=== PATIENT | female | born 1995 | race Caucasian/White ===

== ENCOUNTER → 2023-04-21 16:33 | Outpatient (CLI) | payer OTHER, SELFPAY ==
[2023-04-21 17:46] LABS: Appearance Urine UA CLEAR; Bilirubin Urine UA NEGATIVE (NEGATIVE); Color Urine UA YELLOW; Glucose Urine UA NEGATIVE (Negative); Ketones Urine UA NEGATIVE (NEGATIVE); Leukocyte Esterase Urine UA NEGATIVE (NEGATIVE); Nitrite Urine UA NEGATIVE (Negative); Occult Blood Urine UA NEGATIVE (Negative); Protein Urine UA NEGATIVE (Negative); Urobilinogen Urine UA 0.2 E.U./dL (0.2)
[2023-04-21 17:50] LABS: pH Urine UA 6.5 (4.5-8.0)
[2023-04-21 17:50] LABS: Add Manual Diff / Slide Review NO; Basophils Absolute Auto 0 /uL (0-100); Basophils Percent Auto 0.3 % (0-2); Eosinophils Absolute Auto 0 /uL (0-450); Eosinophils Percent Auto 0.8 % (2-4); Hematocrit 34.1 % (36-46); Hemoglobin 11.9 g/dL (12.0-16.0); Lymphocytes Absolute Auto 1700 /uL (1100-4500); Lymphocytes Percent Auto 29.3 % (25-40); Mean Corpuscular HGB Conc 34.9 % (30-36); Mean Corpuscular Hemoglobin 31.2 PG (26-34); Mean Corpuscular Volume 89.4 fL (80-100); Monocytes Absolute Auto 400 /uL (0-900); Monocytes Percent Auto 6.2 % (3-14); Neutrophils Absolute Auto 3700 /uL (1500-7000); Neutrophils Percent Auto 63.4 % (50-75); Platelet Count 139 X10^3/uL (150-400); Red Blood Cell Count 3.81 X10^6/uL (4.0-5.2); Red Cell Distribution Width 17.2 % (11.6-14.8); White Blood Cell Count 5.8 X10^3/uL (4.5-11.0)
[2023-04-22 11:38] LABS: Hepatitis B Surface Antigen NEGATIVE s/c (NEGATIVE); Rubella Antibody IgG 98.7 IU/mL (>15)
[2023-04-22 11:55] LABS: HIV 1 & 2 Ab/Ag 4th Gen Combo NEGATIVE (NEGATIVE); Hep C Virus Ab w/Reflex Quant NEGATIVE s/c (NEGATIVE)
[2023-04-22 14:24] LABS: Varicella IgG Antibody 584 index (Immune >165)
[2023-04-27 06:32] LABS: RPR Screen Non Reactive (Non Reactive)
== END ==
LOC: LAB 16:35
PROVIDERS: Referring Provider Family Medicine; Visit Provider Family Medicine
DX: Z34.81 Encounter for supervision of other normal pregnancy, first trimester (principal); Z34.82 Encounter for supervision of other normal pregnancy, second trimester
CPT/HCPCS: 36415; 80055; 81003; 86787; 86803; 86850; 86900; 86901; 87086; 87389

== ENCOUNTER → 2023-06-01 15:16 | Outpatient (CLI) | payer OTHER, SELFPAY ==
--- NOTE | 2023-06-01 15:17 | DI.US.S_ITS ---
PROCEDURE: US OB >= 14 WEEKS FETUS INDICATIONS: ANATOMY OUTSIDE/PRIOR DATING DATA: Last menstrual period (LMP): 01/09/23. LMP-based estimated date of delivery (DESTIN): 10/16/23. First dating scan (date and location): 03/17/23. Estimated date of delivery (DESTIN) from first dating scan: 10/13/23. The calculations are made using the working DESTIN of 10/16/23. TECHNIQUE: Real-time scanning was performed of the fetus, with image documentation and biometric measurements. Endovaginal scanning: Not performed COMPARISON: None. FINDINGS: General: A single living intrauterine gestation is present. Presentation: Breech. Placenta: Placental position is posterior . The edge of the placenta is at and potentially over the internal cervical os. Maternal bladder is full creating some artifact. Amniotic fluid index: 9.0 cm, normal range is 5-24 cm. Single deepest vertical pocket is 3.7 cm. heart rate: 155 beats per minute. Maternal cervical canal: Closed and 2.9 cm long. Normal lower limit is 2.5 cm. biometrics: Biparietal diameter: 4.6 cm, 19 weeks six days Head circumference: 17.5 cm, 20 weeks 0 days Abdominal circumference: 17.3 cm, 22 weeks one day Femur length: 3.2 cm, 20 weeks 0 days Clinically estimated gestational age: 20 weeks three days Composite gestational age from present scan: 20 weeks four days Estimated weight and percentile: 397 g, 80th percentile Anatomic survey: Neuro: Ventricles are non-dilated at less than 10 mm. Cisterna magna is normal at 3-11 mm. Cerebellum is normal in size and morphology. Nuchal skin fold: Normal at less than 6 mm between 14-21 weeks gestational age. Face: Nose and lips, facial profile are normal. Spine: Lumbar and sacral spine or less well seen due to lie. Skin covering spine was not well seen due to lie. Heart: 4-chambered heart is present, with normal ventricular outflow tracts. Diaphragm: Diaphragm is intact. Stomach: Left-sided stomach is present. Kidneys: No hydronephrosis. Normal is less than 5 mm in 2nd trimester, less than 7 mm in 3rd trimester. Cord: 3-vessel cord has orthotopic insertion. Bladder: Normal in size. Extremities: All 4 extremities identified. IMPRESSION: Single live intrauterine with appropriate growth. Estimated weight at the 80th percentile. spine in skin covering spine were not well seen due to lie. Follow-up in one week recommended. Otherwise normal anatomy. Posterior placenta with question for previa. Maternal bladder is full which can accentuate appearance of the low lying placenta. Full evaluation in the early 3rd trimester including transvaginal/trans labial imaging for improved detail is recommended. Normal amniotic fluid volume. We strive to produce accurate, complete, and clear reports of imaging services. To assist us in improving patient care, this report was composed using standard report templates and voice recognition software. Therefore, it may contain abnormal punctuation, insertions and/or omissions. Occasional wrong-word or sound-alike substitutions may occur. Though we review the report and make efforts to correct it, we do recommend that the report be read carefully in proper context to recognize any text inaccuracies. Dictated by: Margarita Bhatti M.D. on 06/01/2023 at 18:31 Approved by: Margarita Bhatti M.D. on 06/01/2023 at 18:42
== END ==
PROVIDERS: Referring Provider Family Medicine; Visit Provider Family Medicine
DX: Z34.02 Encounter for supervision of normal first pregnancy, second trimester (principal); Z3A.20 20 weeks gestation of pregnancy
CPT/HCPCS: 76811

== ENCOUNTER → 2023-07-20 10:21 | Outpatient (CLI) | payer OTHER, SELFPAY ==
--- NOTE | 2023-07-20 10:22 | DI.US.S_ITS ---
PROCEDURE: US OB FOLLOW UP INDICATIONS: LOW-LYING PLACENTA OUTSIDE/PRIOR DATING DATA: Last menstrual period (LMP): January 09, 2023. LMP-based estimated date of delivery (DESTIN): October 16, 2023. First dating scan (date and location): March 17, 2023. Estimated date of delivery (DESTIN) from first dating scan: October 13, 2023. TECHNIQUE: Real-time scanning was performed of the fetus, with image documentation. COMPARISON: None. FINDINGS: A single living intrauterine gestation is present. Presentation: Vertex Placenta: The inferior margin of the placenta is located at the cervical os consistent with a low lying placenta. Amniotic fluid index: 12.5 cm, normal range is 5-24 cm. Single deepest vertical pocket is 3.8 cm. heart rate: 131 beats per minute. Maternal cervical canal: 3.5 cm long. Normal lower limit is 2.5 cm. Estimated gestational age from initial scan: 27 weeks, 3 days. Miscellaneous: The spine has a normal sonographic appearance. IMPRESSION: 1. Single live intrauterine gestation in vertex position. 2. The inferior margin of the placenta is located adjacent to the cervical os consistent with a low lying placenta. Dictated by: Lily Piña M.D. on 07/20/2023 at 13:29 Approved by: Lily Piña M.D. on 07/20/2023 at 13:31
== END ==
PROVIDERS: Referring Provider Family Medicine; Visit Provider Family Medicine
DX: O44.02 Complete placenta previa NOS or without hemorrhage, second trimester (principal); Z3A.27 27 weeks gestation of pregnancy
CPT/HCPCS: 76816

== ENCOUNTER 2023-07-24 10:51 | Outpatient (CLI) | payer OTHER, SELFPAY ==
--- NOTE | 2023-07-24 13:52 | PM.OBTRLD ---
Visit Information Visit Information Date of evaluation: 07/24/23 On-call OB Provider: Nely Li Reason for Evaluation: Yes other Comments/Additional reasons for admission: decreased movement Vital Signs Vital Signs: BP 116/70, HR 66, T 97.5 [facility] Medical History (Updated 07/24/23 @ 13:54 by Nely Li DO) Chlamydia (~2017) Abnormal Pap smear of cervix Cellulitis of leg (~2013) Surgical History (Updated 04/16/23 @ 14:17 by Arlene Higuera) Anesthesia [place] teeth removed H/O LEEP (~04/2022) Family History (Updated 04/16/23 @ 14:20 by Arlene Higuera) Grandmother Ovarian cancer Grandmother Dementia Father Mental health problem Mother Mental health problem Sister Mental health problem Grandfather Brain disorder Social History marital status: number of children: 0 household members: spouse and friend(s) (2 roommates ) lives independently: Yes caregiver/support person: No housing: [facility] pets and animals: Yes (cat, 2 dogs) education level: college (some college) occupational status: employed (desk job) and student current occupational exposures/hazards: No special savana needs: No travel history: over 6 months ago seatbelt use: always helmet use: Yes water heater temp set < 120 deg: Yes working smoke detector in home: Yes fire extinguisher in home: Yes carbon monox detector in home: Yes firearms in home: Yes do you feel safe at home: Yes Smoking Status: Former smoker (occasionally in the past, never regularly) second hand exposure: No alcohol intake: never substance use type: does not use during the past year weight has: remained stable well-balanced diet: daily or most days (vegan) daily servings fruits/ve or more times/day caffeine: Yes (~100mg/day) Type(s) of exercise: regular exercise and running Evaluation Evaluation Baseline heart rate: 130 Variability: Moderate (11-25) monitor accelerations: Present (10x10) Monitor Decelerations: Absent Category of Tracing: Appropriate for gestational age Diagnosis, Plan/Disposition Final Diagnosis (1) Decreased movement: Status: Acute Plan/Disposition Plan: 27yo at 28+0wks presenting for decreased movement. Appropriate NST for gestational age, with pt experiencing active movement while in triage. -discharged home with routine precautions, and advised to f/u in clinic as scheduled OB Disposition: home
== END 2023-07-24 11:45 | disposition home or self-care (01) ==
LOC: OB 07-26 10:37
PROVIDERS: Referring Provider Student in an Organized Health Care Education/Training Program; Visit Provider Student in an Organized Health Care Education/Training Program
DX: O36.8190 Decreased fetal movements, unspecified trimester, not applicable or unspecified (principal); Z36.9 Encounter for antenatal screening, unspecified
CPT/HCPCS: 59025; G0378; G0379

== ENCOUNTER → 2023-07-30 10:37 | Outpatient (CLI) | payer OTHER, SELFPAY ==
[2023-07-30 12:25] LABS: Add Manual Diff / Slide Review NO; Basophils Absolute Auto 0 /uL (0-100); Basophils Percent Auto 0.3 % (0-2); Eosinophils Absolute Auto 0 /uL (0-450); Eosinophils Percent Auto 0.5 % (2-4); Hematocrit 33.2 % (36-46); Hemoglobin 11.4 g/dL (12.0-16.0); Lymphocytes Absolute Auto 1200 /uL (1100-4500); Lymphocytes Percent Auto 19.9 % (25-40); Mean Corpuscular HGB Conc 34.4 % (30-36); Mean Corpuscular Hemoglobin 32.2 PG (26-34); Mean Corpuscular Volume 93.7 fL (80-100); Monocytes Absolute Auto 500 /uL (0-900); Monocytes Percent Auto 7.9 % (3-14); Neutrophils Absolute Auto 4500 /uL (1500-7000); Neutrophils Percent Auto 71.4 % (50-75); Platelet Count 111 X10^3/uL (150-400); Red Blood Cell Count 3.55 X10^6/uL (4.0-5.2); Red Cell Distribution Width 13.8 % (11.6-14.8); White Blood Cell Count 6.2 X10^3/uL (4.5-11.0)
[2023-07-30 12:34] LABS: GTT (PREG) 1 Hour PP 50gm Dose 100 mg/dL (76-139)
== END ==
PROVIDERS: Referring Provider Family Medicine; Visit Provider Family Medicine
DX: Z34.00 Encounter for supervision of normal first pregnancy, unspecified trimester (principal)
CPT/HCPCS: 36415; 82950; 85025; 86850

== ENCOUNTER → 2023-08-19 10:11 | Outpatient (CLI) | payer OTHER, SELFPAY ==
--- NOTE | 2023-08-19 10:12 | DI.US.S_ITS ---
PROCEDURE: US OB FOLLOW UP INDICATIONS: placenta previa, follow up OUTSIDE/PRIOR DATING DATA: Last menstrual period (LMP): 01/09/2023. LMP-based estimated date of delivery (DESTIN): 10/16/2023. First dating scan (date and location): 03/17/2023. Estimated date of delivery (DESTIN) from first dating scan: 10/13/2023. The calculations are made using the clinical DESTIN of 10/16/2023. TECHNIQUE: Real-time scanning was performed of the fetus, with image documentation. Endovaginal scanning: Not performed COMPARISON: [facility], OB FOLLOW UP, 07/20/2023, 10:28. FINDINGS: A single living intrauterine gestation is present. Presentation: Vertex. Placenta: Placental position is posterior, with previa. Amniotic fluid index: 8.3 cm, normal range is 5-24 cm. Single deepest vertical pocket is 4.7 cm. heart rate: 157 beats per minute. Maternal cervical canal: 3.8 cm long. Normal lower limit is 2.5 cm. Clinically estimated gestational age: 31 weeks 5 days IMPRESSION: Single living intrauterine at 31 weeks 5 days, DESTIN of 10/16/2023. Placenta previa on today's exam. Dictated by: David Rutherford M.D. on 08/19/2023 at 15:18 Approved by: David Rutherford M.D. on 08/19/2023 at 15:20
== END ==
LOC: US 10:11
PROVIDERS: Referring Provider Family Medicine; Visit Provider Family Medicine
DX: O44.00 Complete placenta previa NOS or without hemorrhage, unspecified trimester (principal); Z3A.31 31 weeks gestation of pregnancy
CPT/HCPCS: 76816

== ENCOUNTER → 2023-09-21 10:11 | Outpatient (CLI) | payer OTHER, SELFPAY ==
[2023-09-22 10:24] LABS: Strep Grp B PCR NEG for Grp B Strep
== END ==
PROVIDERS: Visit Provider Family Medicine
DX: Z34.00 Encounter for supervision of normal first pregnancy, unspecified trimester (principal)
CPT/HCPCS: 87653

== ENCOUNTER 2023-09-24 02:46 | Inpatient (IN) | payer OTHER, SELFPAY ==
--- NOTE | 2023-09-24 02:57 | DI.US.S_ITS ---
PROCEDURE: US OB BIOPHYSICAL PROFILE INDICATIONS: vaginal bleeding. need biometrics and placenta status OUTSIDE/PRIOR DATING DATA: Last menstrual period (LMP): 01/09/23. LMP-based estimated date of delivery (DESTIN): 10/16/23. First dating scan (date and location): 03/17/23. Estimated date of delivery (DESTIN) from first dating scan: 10/13/23. The calculations are made using the working DESTIN of 10/16/23. TECHNIQUE: Real-time scanning was performed of the fetus, with image documentation and biometric measurements. Biophysical profile was also obtained. Endovaginal scanning: Performed for cervical detail COMPARISON: None. FINDINGS: General: A single living intrauterine gestation is present. Presentation: Vertex, spine to maternal right. Placenta: Placental position is reported to be posterior, appears inferior, with apparent complete previa. Amniotic fluid index: 7.1 cm, normal range is 5-24 cm. Single deepest vertical pocket is 2.5 cm. heart rate: 139 beats per minute. Maternal cervical canal: Appears closed and 3.2 cm long. Normal lower limit is 2.5 cm. biometrics: Biparietal diameter: 8.1 cm, 32 weeks three days Head circumference: 31.3 cm, 35 weeks one day Abdominal circumference: 33.6 cm, 37 weeks three days Femur length: 7.2 cm, 36 weeks five days Clinically estimated gestational age: 36 weeks six days Composite gestational age from present scan: 35 weeks three days Estimated weight and percentile: 2938 g, 44th percentile Biophysical profile: 11/17 Tone: 2 Movement: 2 points. Respiration: 2 points. Largest pocket of fluid: 2 points. Umbilical artery Doppler: Ranging from 2.1-2.6, normal IMPRESSION: Single living intrauterine with composite gestational age one week three days behind clinically estimated gestational age. Estimated weight at the 44th percentile. Normal biophysical profile score. Normal umbilical cord Dopplers. Closed cervix and normal amniotic fluid volume. Complete placenta previa. Preliminary results given by the temperature logging operator to the ordering provider by telephone. We strive to produce accurate, complete, and clear reports of imaging services. To assist us in improving patient care, this report was composed using standard report templates and voice recognition software. Therefore, it may contain abnormal punctuation, insertions and/or omissions. Occasional wrong-word or sound-alike substitutions may occur. Though we review the report and make efforts to correct it, we do recommend that the report be read carefully in proper context to recognize any text inaccuracies. Dictated by: Margarita Bhatti M.D. on 09/24/2023 at 8:15 Approved by: Margarita Bhatti M.D. on 09/24/2023 at 8:27
[2023-09-24 03:28] LABS: Add Manual Diff / Slide Review NO; Basophils Absolute Auto 0 /uL (0-100); Basophils Percent Auto 0.5 % (0-2); Eosinophils Absolute Auto 0 /uL (0-450); Eosinophils Percent Auto 0.6 % (2-4); Hematocrit 31.1 % (36-46); Hemoglobin 10.9 g/dL (12.0-16.0); Lymphocytes Absolute Auto 1900 /uL (1100-4500); Lymphocytes Percent Auto 24.6 % (25-40); Mean Corpuscular HGB Conc 35.1 % (30-36); Mean Corpuscular Volume 91.1 fL (80-100); Monocytes Absolute Auto 600 /uL (0-900); Monocytes Percent Auto 7.6 % (3-14); Neutrophils Absolute Auto 5200 /uL (1500-7000); Neutrophils Percent Auto 66.7 % (50-75); Platelet Count 92 X10^3/uL (150-400); Red Blood Cell Count 3.41 X10^6/uL (4.0-5.2); Red Cell Distribution Width 13.7 % (11.6-14.8); White Blood Cell Count 7.8 X10^3/uL (4.5-11.0)
[2023-09-24 04:02] LABS: INR 0.9 (0.9-1.3); Prothrombin Time 9.8 SECONDS (9.4-12.5)
[2023-09-24 04:05] LABS: PTT Partial Thromboplastin Tim 25 SECONDS (25.1-36.5)
[2023-09-24 04:32] LABS: Fibrinogen 424 mg/dL (238-498)
--- NOTE | 2023-09-24 05:11 | PM.OBHP.1 ---
OB HPI Date/Time Date of admission: 09/24/23 Date Patient Seen: 09/24/23 Time Patient Seen: 05:11 History of Present Condition Chief complaint: IUP, 36+6 wks, marginal previa, vaginal bleeding : 1 Para: 0 Estimated Date of Delivery: 10/16/23 Estimated Gestational Age (weeks): 36+6 Narrative: Laurie Gtz is a 27 year old primigravida admitted now at 36+ 6 weeks gestational age with 3rd trimester bleeding and contractions. Patient was diagnosed with placenta previa at the time of her 20 week anatomy scan and subsequent scans have shown persistence of at least a marginal placenta previa. Her most recent evaluation by [facility] on 09/13/2023 showed the placental edge to be less than 0.5 cm from the internal cervical os in the recommendation was made for primary delivery. She is currently scheduled for delivery by primary section on 10/04/2023 but early this morning began having painless vaginal bleeding and presented to the center for evaluation. Her heart rate tracing is reassuring in all respects and biophysical profile is 10/10. She continues to have light bright red vaginal bleeding but now has started having contractions which are occurring about every 3-4 minutes and becoming increasingly painful. In the face of 3rd trimester bleeding, and increasingly intense contraction activity, patient is admitted now for primary delivery. Patient's dating is solid with appropriate milestones throughout. Initial CBC during this showed decreased platelet count (139k) with her platelet count on admission this morning also decreased at 92k. Cell free DNA studies show she has a low risk male . GBS is negative. Indications Operative indications ( section): placenta previa History of Present care: good care Dating criteria: LMP confirmed by 1st trimester US Ultrasounds: normal 1st trimester US, normal mid trimester US and abnormal US findings (Placenta previa, posterior) Obstetrical complications: other (Placenta previa) Medical complications: other (Idiopathic Thrombocytopenia) Preadmission Labs Blood type: A (+) positive -: Antibody screen: negative, GBS status: negative, HBsAG: negative, HIV: negative and RPR/VDLR: negative -: Chlamydia screen: not detected and Gonorrhea screen: not detected -: Rubella: immune and Varicella: immune HCT: 31.1 HCAB: negative PAP: Normal Cell-free DNA: Low risk male infant 1 hr GTT: 100 Prior (ies) History: Primigravida Evaluation Evaluation Baseline heart rate: 155 Contraction Frequency (minutes): 4 Uterine Contraction Intensity: Moderate Category of Tracing: Reactive Status: Category l Comments: Cervical check deferred [facility] Medical History (Updated 09/24/23 @ 05:34 by Sujit Bunch MD) Anemia affecting Chlamydia (~2017) Abnormal Pap smear of cervix Cellulitis of leg (~2013) Surgical History (Updated 04/16/23 @ 14:17 by Arlene Higuera) Anesthesia [place] teeth removed H/O LEEP (~04/2022) Family History (Updated 04/16/23 @ 14:20 by Arlene Higuera) Grandmother Ovarian cancer Grandmother Dementia Father Mental health problem Mother Mental health problem Sister Mental health problem Grandfather Brain disorder Social History marital status: number of children: 0 household members: spouse and friend(s) (2 roommates ) lives independently: Yes caregiver/support person: No housing: [facility] pets and animals: Yes (cat, 2 dogs) education level: college (some college) occupational status: employed (desk job) and student current occupational exposures/hazards: No special savana needs: No travel history: over 6 months ago seatbelt use: always helmet use: Yes water heater temp set < 120 deg: Yes working smoke detector in home: Yes fire extinguisher in home: Yes carbon monox detector in home: Yes firearms in home: Yes do you feel safe at home: Yes Smoking Status: Former smoker (occasionally in the past, never regularly) second hand exposure: No alcohol intake: never substance use type: does not use during the past year weight has: remained stable well-balanced diet: daily or most days (vegan) daily servings fruits/ve or more times/day caffeine: Yes (~100mg/day) Type(s) of exercise: regular exercise and running Meds Home Medications and Allergies Home Medications Medication Instructions Recorded Confirmed Type multivitamin with minerals 1 cap PO DAILY 02/19/23 09/21/23 History vitamin-ferrous sulfate tab PO 02/19/23 09/21/23 History 27 mg iron-folic acid 0.8 mg tablet Double Electric Breast Pump and #1 ea 05/03/24 06/11/24 Rx Supplies Allergies Allergy/AdvReac Type Severity Reaction Status Date / Time No Known Drug Allergies Allergy Unverified 09/21/23 10:32 Review of Systems Review of Systems Narrative: Problem-specific ROS positives included in HPI OB Exam Vital signs Blood Pressure: 124/77 Pulse Rate: 67 Temperature: 97.9 F HENMT Head: normal to inspection, normocephalic and atraumatic Eyes General: appearance normal, both eyes and all related structures Resp Effort & Inspection: normal respiratory effort and able to speak in complete sentences Auscultation: clear to auscultation bilaterally Cardio Rate: regular rate Rhythm: regular rhythm Heart Sounds: S1 normal, S2 normal and no murmurs Extremities Lower extremity: Yes normal to inspection GI Inspection: normal to inspection Palpation: Yes soft and Yes no hepatosplenomegaly Uterus Location (Fundal Height): 37 Presentation: vertex Estimated Weight (lbs): 6 Objective Labs 09/24/23 03:12 Labs: Laboratory Results - last 24 hr 09/24/23 03:12 WBC 7.8 RBC 3.41 L Hgb 10.9 L Hct 31.1 L MCV 91.1 MCH 32.0 MCHC 35.1 RDW 13.7 Plt Count 92 L Neut % (Auto) 66.7 Lymph % (Auto) 24.6 L [place] % (Auto) 7.6 Eos % (Auto) 0.6 L Baso % (Auto) 0.5 Neut # (Auto) 5200 Lymph # (Auto) 1900 [place] # (Auto) 600 Eos # (Auto) 0 Baso # (Auto) 0 PT 9.8 INR 0.9 APTT 25 L Fibrinogen 424 Blood Type A Positive Antibody Screen Negative Assessment and Plan Assessment and Plan Assessment and Plan narrative: ASSESSMENT 1. Intrauterine , 36+ 6 weeks gestational age 2. Marginal placenta previa with hemorrhage 3rd trimester 3. Maternal thrombocytopenia, idiopathic 4. Maternal anemia 5. GBS negative status PLAN 1. Admit for primary section 2. See admission orders 3. Patient counseled regarding alternatives, risks, benefits, and potential complications associated with primary delivery by low transverse cervical incision. With full understanding of the above, a written consent was executed, signed, and witnessed this date.
[2023-09-24 05:37] VITALS: BP 124/77; PULSE 67; TEMP 36.6
[2023-09-24 05:40] VITALS: BP 124/77
--- NOTE | 2023-09-24 05:43 | PM.PREOP ---
Pre-operative Note COVID-19 COVID-19 status: Not tested Interval Note History & Physical reviewed/Exam performed by Physician: Yes Changes to H&P: No
[2023-09-24] MEDS: CITRIC ACID/SODIUM CITRATE 15 ML SOLUTION 30 ML PO (06:01)
[2023-09-24] MEDS: LACTATED RINGERS 1,000 ML 999 ML IV ×2 (06:02→07:27)
[2023-09-24 07:12] VITALS: BP 117/71; PULSE 70; RESP 15; TEMP 36.3; O2SAT 99
[2023-09-24 07:17] VITALS: BP 115/72; PULSE 64; RESP 15; O2SAT 99
--- NOTE | 2023-09-24 07:20 | P.OP_ITS ---
Operative Date/Time/Diagnoses Date of procedure: 09/24/23 Time of procedure: 06:00 Pre-op diagnosis: 36w6d gestation GBS negative Rh positive Marginal placenta previa labor Post-op diagnosis: same Procedure & Clinicians Procedure: Primary Same procedure as scheduled: Yes Indications: Marginal previa Surgeon: Belia Barlow [employer] Librarian: Sujit Bunch Anesthesia Type: Spinal Operative Notes Findings: Normal uterus, ovaries, and tubes Closure Type: primary Applied: Catheter Estimated Blood Loss (mL): 550 Blood products transfused: none Procedure in detail: OPERATIVE COURSE: The patient was taken to the operating room where spinal anesthesia was placed. She was then prepared and draped in the normal sterile fashion in the dorsal supine position with a leftward tilt. Anesthesia was tested and found to be adequate. A Pfannensteil skin incision was then made with the scalpel and carried through to the underlying layer of fascia with the scalpel. The fascia was incised in the midline and the incision extended laterally with the Liang scissors. The superior aspect of the fascial incision was then grasped with Dandre clamps, elevated with the help of the surgical services asst, and the underlying rectus muscles dissected off bluntly and sharply where needed. Attention was then turned to the inferior aspect of the incision which, in a similar fashion, was grasped, tented up with Dandre clamps, and the rectus muscle dissected off bluntly and sharply with Liang scissors. The rectus muscles were then in the midline, and the peritoneum was identified and entered bluntly. The peritoneal incision was then extended with good visualization of the bladder. Retraction was provided by the surgical services asst. The bladder blade was then inserted and the vesicouterine peritoneum identified, grasped with pick-ups and entered sharply with the Metzenbaum scissors. The incision was then extended laterally and the bladder flap created digitally. The bladder blade was then reinserted and the lower uterine segment incised in a transverse fashion with the scalpel, with the surgical services asst providing suction. The uterine incision was then extended superolaterally by pulling superolaterally on both sides. Membranes were ruptured and fluid was clear. The bladder blade was removed the infant's head was flexed out of OA position and delivered atraumatically, with fundal pressure by the surgical services asst. The nose and mouth were suctioned with bulb suction and the cord was clamped and cut. The was handed off to the waiting nursing staff. Cord blood was collected for Rh status. The placenta was then delivered with gentle cord traction. The uterus was then exteriorized and cleared of all clots and debris. The uterine incision was repaired with 1-Chromic in a running, locked fashion. A second layer of the same suture was used to obtain excellent hemostasis. The uterus was returned to the abdomen. The gutters were cleared of all clots. Hysterotomy was investigated and found to be hemostatic. The bladder flap was closed with 2-O Vicryl The peritoneum was closed with 2-O Vicryl. The fascia was reapproximated with 1-Vicryl in a running fashion. The subcutaneous tissue was reapproximated with 3-O Vicryl. The skin was closed with 4-O Monocryl. The surgical services asst helped with retraction during closures. SPONGE AND NEEDLE COUNTS: Correct x3. DRESSING: Aquacel ANTICOAGULATION: SCDs applied prior to Surgery Preop antibiotics given (see MAR). The patient was taken to recovery room having tolerated procedure well. Complications: none Baby 1: Gender: Male Presentation: vertex Position: Left Occiput Anterior Placental Delivery Description: Spontaneous Cord Vessel Description: 3 Vessels score (1 min): 6 score (5 min): 8 Post-operative Condition: stable Disposition: PACU Aftercare: routine postop
[2023-09-24 07:23] VITALS: BP 118/71; PULSE 65; RESP 14; O2SAT 100
[2023-09-24 07:40] VITALS: BP 112/60; PULSE 68; RESP 12; O2SAT 100
[2023-09-24] MEDS: KETOROLAC 30 MG/ML VIAL IV ×3 (07:52→19:34)
[2023-09-24] MEDS: ACETAMINOPHEN 325 MG TABLET 650 MG PO ×3 (09:17→23:07)
[2023-09-24] MEDS: OXYCODONE IR 5 MG TABLET PO ×4 (10:03→23:07)
[2023-09-25] MEDS: KETOROLAC 30 MG/ML VIAL IV (02:39)
[2023-09-25] MEDS: ACETAMINOPHEN 325 MG TABLET 650 MG PO ×3 (05:12→19:23)
[2023-09-25] MEDS: OXYCODONE IR 5 MG TABLET PO ×5 (05:13→23:30)
[2023-09-25 06:24] LABS: Add Manual Diff / Slide Review NO; Basophils Absolute Auto 0 /uL (0-100); Basophils Percent Auto 0.2 % (0-2); Eosinophils Absolute Auto 100 /uL (0-450); Eosinophils Percent Auto 0.6 % (2-4); Hematocrit 27.2 % (36-46); Hemoglobin 9.7 g/dL (12.0-16.0); Lymphocytes Absolute Auto 1700 /uL (1100-4500); Lymphocytes Percent Auto 21.4 % (25-40); Mean Corpuscular HGB Conc 35.5 % (30-36); Mean Corpuscular Hemoglobin 32.3 PG (26-34); Mean Corpuscular Volume 90.9 fL (80-100); Monocytes Absolute Auto 500 /uL (0-900); Monocytes Percent Auto 6.6 % (3-14); Neutrophils Absolute Auto 5800 /uL (1500-7000); Neutrophils Percent Auto 71.2 % (50-75); Platelet Count 80 X10^3/uL (150-400); Red Blood Cell Count 2.99 X10^6/uL (4.0-5.2); Red Cell Distribution Width 13.6 % (11.6-14.8); White Blood Cell Count 8.1 X10^3/uL (4.5-11.0)
[2023-09-25] MEDS: PRENATAL VIT,CALC/IRON/FOLIC 1 TABLET 1 TAB PO (08:48)
[2023-09-25] MEDS: IBUPROFEN 600 MG TABLET PO ×3 (08:49→21:30)
[2023-09-25] MEDS: FERROUS SULFATE 325 MG TABLET PO (08:49)
[2023-09-25] MEDS: DOCUSATE 100 MG CAPSULE PO (08:50)
--- NOTE | 2023-09-25 12:16 | PM.OBPN.1 ---
Subjective - OB Subjective Patient comments: no complaints and pain well controlled [place] baby status: doing well [place] feeding status: other (breast feeding and pumping) Date Patient Seen: 09/25/23 Time Patient Seen: 12:00 Exam Vital Signs (past 8 hours): Oxygen Delivery Method Room Air Narrative Exam Narrative: General: Well-appearing, well-nourished, no distress HEENT: Moist mucous membranes, no pallor CV: Regular rate and rhythm, no murmur auscultated Resp: CTAB, comfortable work of breathing Abdomen: Soft, bowel sounds present, fundus firm below umbilicus with appropriate tenderness, incision c/d/i Extremities: No edema, no calf tenderness or evidence of DVT Objective Labs 09/25/23 06:13 Labs: Laboratory Results - last 24 hr 09/25/23 06:13 WBC 8.1 RBC 2.99 L Hgb 9.7 L Hct 27.2 L MCV 90.9 MCH 32.3 MCHC 35.5 RDW 13.6 Plt Count 80 L Neut % (Auto) 71.2 Lymph % (Auto) 21.4 L [place] % (Auto) 6.6 Eos % (Auto) 0.6 L Baso % (Auto) 0.2 Neut # (Auto) 5800 Lymph # (Auto) 1700 [place] # (Auto) 500 Eos # (Auto) 100 Baso # (Auto) 0 Assessment & Plan Assessment and Plan (1) delivery delivered: Status: Acute Plan day: 1 plan OB: routine postop care Comments: POD #1 s/p primary CS for marginal previa with vaginal bleeding. - Clinically stable, recovering well - Pain management as needed - support s/p consult - Encourage ambulation, flatus/BM prior to discharge - Bleeding appropriate for course, monitor - Likely discharge home POD #2 Time Spent With Patient Time: Total time spent is greater than 50% in coordination of care (as documented) at patient's floor/unit and/or counseling patient: Time with patient: less than 15 minutes
[2023-09-26] MEDS: ACETAMINOPHEN 325 MG TABLET 650 MG PO ×2 (01:32→07:14)
[2023-09-26] MEDS: OXYCODONE IR 5 MG TABLET PO ×2 (03:33→10:20)
[2023-09-26] MEDS: IBUPROFEN 600 MG TABLET PO ×2 (03:33→10:23)
--- NOTE | 2023-09-26 09:40 | P.DS_ITS ---
Discharge Providers Provider Date of admission: 09/24/23 02:46 Discharge Date: 09/26/23 Primary care physician: Belia Barlow MD Consults: 09/24/23 07:26 Consult to Deputy Director Of Public Works Routine Comment: Discharge provider: Santo Navarro MD Summary Hospital Course Date Patient Seen: 09/26/23 Time Patient Seen: 09:41 Diagnoses: # delivery delivered # Anemia affecting # Marginal placenta previa # Vaginal bleeding in 3rd trimester Hospital Course: Admitted for urgent delivery due to marginal placenta previa with vaginal bleeding on 09/24/2023. She had an uncomplicated primary CS of a live male . Her course was uncomplicated. At discharge patient is ambulating well, tolerating normal diet, breast-feeding without difficulty, and pain is adequately controlled. She reports bleeding is similar to normal menses. Discharged home on oral iron supplement due to acute postoperative anemia in setting of chronic anemia of . Peripartum Data Delivery Method: Section complications: none 1: Gender: Male Disposition of : home Discharge Diagnosis (1) delivery delivered: Status: Acute Status at Discharge Cognitive/behavioral status at discharge: at baseline, oriented Functional status at discharge: independent ambulation Overall status at discharge: patient is progressing back to baseline Time Spent with Patient Time attestation: Total time spent providing and/or coordinating discharge services: Time spent: Less than 30 minutes Objective Labs 09/25/23 06:13 Exam Vital Signs (past 8 hours): Oxygen Delivery Method Room Air Narrative Exam Narrative: General: Well-appearing, well-nourished, no distress HEENT: Moist mucous membranes, no pallor CV: Regular rate and rhythm, no murmur auscultated Resp: CTAB, comfortable work of breathing Abdomen: Soft, bowel sounds present, fundus firm below umbilicus with appropriate tenderness, incision c/d/i covered by Aquacel dressing Extremities: No edema, no calf tenderness or evidence of DVT Discharge Plan Discharge Plan Patient Disposition: Home Provider Discharge Comment: Follow up in 1 week for incision check Discharge orders & Medications Prescriptions: New ferrous sulfate 325 mg (65 mg iron) Tablet 325 mg PO DAILY Qty: 60 0RF ibuprofen 600 mg Tablet 600 mg PO Q6H Qty: 60 0RF Purelan Cream 1 applic topical PRN PRN (Reason: Skin protectant) Qty: 7 3RF A.E.RNichole Escalonael 12.5-50 % Pads, Medicated 1 pad topical Q30M PRN (Reason: Itching) Qty: 40 1RF polyethylene glycol 3350 17 gram/dose powder 17 g PO DAILY Qty: 510 0RF oxycodone 5 mg Tablet 5 mg PO Q6H PRN (Reason: Pain, Moderate (4-6)) Qty: 20 0RF Continued (DME) Double Electric Breast Pump and Supplies See Rx Instructions .ROUTE .MEDSUPPLY Qty: 1 0RF Rx Instructions: As directed vit-ferrous sulfat-FA 27 mg iron- 0.8 mg tablet See Rx Instructions .ROUTE .COMPLEX Rx Instructions: Take as directed multivitamin with minerals Capsule 1 cap PO DAILY Follow up/Referrals: ProviderRicardo [Primary Care Provider] - Diet/Activity/Treatments Diet comment: Regular Activity: As tolerated Visit Report/Discharge Packet Stand Alone Forms: Discharge: Care, Patient Portal/API, Stroke Signs & Symptoms Discharge Data Primary Care Provider: Ricardo Dacosta
[2023-09-26] MEDS: DOCUSATE 100 MG CAPSULE PO (10:20)
[2023-09-26] MEDS: FERROUS SULFATE 325 MG TABLET PO (10:21)
== END 2023-09-26 12:00 | disposition home or self-care (01) | DRG 788 ==
PROVIDERS: Family Medicine; Admitting Provider Obstetrics & Gynecology; Referring Provider Obstetrics & Gynecology; Visit Provider Obstetrics & Gynecology
PROC: (CPT 59514; principal; 2023-09-24 05:45)
DX: O44.33 Partial placenta previa with hemorrhage, third trimester (principal); Z3A.36 36 weeks gestation of pregnancy; Z37.0 Single live birth
CPT/HCPCS: 36415; 59050; 59510; 59514; 76819; 85025; 85384; 85610; 85730; 86850; 86900; 86901; G0379; J0171; J0330; J1100; J1885; J2590; J2704; J3010

== ENCOUNTER → 2024-05-24 18:17 | Outpatient (CLI) | payer OTHER, SELFPAY | PROVIDERS: Visit Provider Registered Nurse | DX: S81.802A Unspecified open wound, left lower leg, initial encounter (principal); X58.XXXA Exposure to other specified factors, initial encounter | CPT/HCPCS: 87070; 87077; 87147; 87186; 87205 ==